=== PATIENT | female | born 1985 | race African-American/Black ===

== ENCOUNTER 2016-10-22 23:45 | Emergency (ER) | payer SELFPAY ==
[~2016-10-22] VITALS: Ht 175.3 cm; Wt 79.0 kg
[~2016-10-22 23:45] MED LIST: Z.0.NO CURRENT MEDS
[2016-10-22 23:49] VITALS: BP 130/91; PULSE 81; RESP 16; TEMP 98.2; O2SAT 99
[2016-10-23] MEDS ORDERED: LIDOCAINE 1%/EPINEPHrine 1:100,000 SOLN 20 ML VIAL INFIL ONE (00:45)
[2016-10-23] MEDS ORDERED: MORPHINE SULFATE 8 MG/ML INJ IM ONE (00:45)
--- NOTE | 2016-10-23 01:08 | PD ---
Physical Exam Time Seen by Provider: 00:45 Data Data Last Documented VS Vital Signs Date Time Temp Pulse Resp B/P Pulse Ox O2 Delivery O2 Flow Rate FiO2 10/23/16 00:10 18 10/22/16 23:49 98.2 81 130/91 99 Room Air Orders Morphine Inj (Morphine Inj) (10/23/16 00:45) Lidocai-Epi 1%-1:100,000 Inj (Xylocaine- (10/23/16 00:45) Wound Culture And Gram Stain (10/23/16 00:41) MDM Medical Record Reviewed: Yes Supervised Visit with TROY: Yes Narrative Course This patient presents with a right labial abscess which I was asked to perform incision and drainage on. The patient gave verbal consent for incision and drainage, she understands that scarring is likely. The procedure was performed in the presence of a female nurse. A wound culture was performed. Procedures Procedure Narrative INCISION AND DRAINAGE OF ABSCESS: The area was prepped and was sterilely draped. A subcutaneous wheal of 1% Xylocaine with epinephrine with a total number 12 mL was used to anesthetize the area. The area was properly anesthetized. A [id number] scalpel was used to make a 1.5 -cm incision across the area of the abscess. Cultures were obtained. The abscess was drained an irrigated with normal saline. Yoshi Valencia Oct 23, 2016 01:08
[2016-10-23] MEDS ORDERED: CEPHALEXIN MONOHYDRATE 500 MG CAP PO ONE (01:15)
[2016-10-23] MEDS ORDERED: SULFAMETHOXAZOLE-TRIMETHOPRIM DS 800-160 MG TAB PO ONE (01:15)
[2016-10-23] MEDS ORDERED: IBUPROFEN 600 MG TAB PO ONE (01:15)
[2016-10-23] MEDS ORDERED: CEPH-460 PO (01:21)
[2016-10-23] MEDS ORDERED: BACT800T5 PO (01:21)
[2016-10-23] MEDS ORDERED: PERC5TAB12 PO (01:21)
--- NOTE | 2016-10-23 01:21 | PD ---
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 Patient first noticed the symptoms about 6 days ago and believes it was an ingrown hair. Area increased in size and pain and she was able to express pus a couple days later. 2 days ago she had her vaginal area waxed. She is here on vacation from [place] and states that when she got off the airplane the pain was so bad that she had to be evaluated. Pain is moderate to severe, constant, worse with movement and palpation. She is sexually active with one partner who is present with her. No history of STI. No fevers or chills. No abdominal pain. No nausea or vomiting. 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 CARDIOVASCULAR: Regular rate and rhythm. No murmur appreciated. RESPIRATORY: No accessory muscle use. Clear to auscultation. Breath sounds equal bilaterally. GASTROINTESTINAL: Abdomen soft, non-tender, nondistended. MENTAL HEALTH ADVANCED PRACTICE NURSE: Exam performed in the presence of a female nurse. Right labia with moderate edema with mild overlying erythema with fluctuance surrounded by induration, no spontaneous purulent drainage. This area was evaluated using the linear ultrasound probe in shows a large drainable fluid collection with overlying cobblestoning. Normal introitus PSYCHIATRIC: Appropriate mood and affect; insight and judgment normal. Data Data Last Documented VS Vital Signs Date Time Temp Pulse Resp B/P Pulse Ox O2 Delivery O2 Flow Rate FiO2 10/23/16 00:10 18 10/22/16 23:49 98.2 81 130/91 99 Room Air Orders Morphine Inj (Morphine Inj) (10/23/16 00:45) Lidocai-Epi 1%-1:100,000 Inj (Xylocaine- (10/23/16 00:45) Wound Culture And Gram Stain (10/23/16 00:41) Sulfamet-Trimeth Ds 800-160 Mg (Bactrim (10/23/16 01:15) Cephalexin (Keflex) (10/23/16 01:15) Ibuprofen (Motrin) (10/23/16 01:15) MDM Medical Decision Making Medical Screen Exam Complete: Yes Emergency Medical Condition: Yes Differential Diagnosis Labial abscess, Bartholin cyst unlikely, inguinal hernia unlikely Narrative Course Patient has exam findings consistent with a right labial abscess. This abscess was incised and drained by my PA. See his procedure note. Patient experienced significant relief after incision and drainage. She will be discharged home with a prescription for Bactrim and Keflex as well as pain medication. She is here on vacation and was told that she can return to the emergency department at any time while she is here if she is having any concerns. She was instructed to follow-up with an [employer]PORATE TRAVEL CONSULTANT doctor when she returns to [place] in 4 days. Diagnosis Primary Impression: Labial abscess Referrals: Elevator Tender 3 days Additional Instructions: Follow-up with an [employer] TRAVEL CONSULTANT doctor this week. Return to the emergency room if worsening symptoms or any other concerns as discussed. Scripts Oxycodone-Acetaminophen (Percocet)5-325 mg Tab1 Tab PO Q6H PRN (PAIN) #15 TAB Ref 0 Prov:Thang Gonzalez MD 10/23/16 Cephalexin (Keflex)500 Mg [id number] Mg PO Q8H #30 CAP Ref 0 Prov:Thang Gonzalez MD 10/23/16 Sulfamethoxazole-Trimethoprim (Bactrim DS)800-160 Mg Tab1 Tab PO BID #14 TAB Ref 0 Prov:Thang Gonzaelz MD 10/23/16 Disposition: 01 DISCHARGE HOME Condition: Stable Thang Gonzalez MD Oct 23, 2016 01:21
== END 2016-10-23 01:52 | disposition home or self-care (01) ==
LOC: NEPE 23:45
DX: N76.4 Abscess of vulva (principal); A49.9 Bacterial infection, unspecified
CPT/HCPCS: 10060; 86403; 87070; 87185; 96372; 99283; J2270